=== PATIENT | female | born 1980 | race Caucasian/White ===

== ENCOUNTER 2021-09-03 01:19 | Day surgery (SDC) | payer OTHER, SELFPAY ==
[2021-09-03] VITALS (10 sets, daily range): BP systolic 144–182; BP diastolic 79–100; PULSE 69–93; RESP 13–18; TEMP 36.2–37.1; O2SAT 93–100
--- NOTE | 2021-09-03 09:23 | ECG_ITS ---
Measurements Intervals [place] Rate: 75 P: 41 HI: 135 QRS: -8 QRSD: 126 T: 44 QT: 392 QTc: 439 Interpretive Statements SINUS RHYTHM MINIMAL Q WAVES- HIGH LATERAL LEADS BASELINE ARTIFACT- AVL, V1 BORDERLINE ECG Electronically Signed On 09-03-2021 11:54:58 CDT by Randolph Yost D.O.
[2021-09-03 11:10] LABS: Add Urine Microscopic? NO; Appearance Urine Clear (Clear); Bilirubin Urine Negative (Negative); Blood Urine Negative (Negative); Color Urine Yellow (Yellow); Glucose Urine UA Negative (Negative); Ketones Urine Negative (Negative); Leukocyte Esterase Ur Negative LEU/UL (NEGATIVE); Nitrate Urine Negative (Negative); Protein Urine Negative (Negative); Specific Grav Ur 1.014 (1.001-1.035); Urobilinogen Urine Negative mg/dL (<2.0)
[2021-09-03] MEDS: LACTATED RINGERS 1,000 ML 30 ML IV CONT ×2 (11:15→15:10)
[2021-09-03] MEDS: KETOROLAC 15 MG/ML VIAL (*BKC) IV PUSH (11:19)
[2021-09-03] MEDS: ACETAMINOPHEN 500 MG TABLET 1000 MG PO (11:19)
[2021-09-03 11:34] LABS: Hematocrit 41.7 % (37.0-47.0); Hemoglobin 13.5 g/dL (12.0-15.0)
--- NOTE | 2021-09-03 12:30 | PM.HPGS ---
History of Present Illness History of Present Illness Consent: Risks, benefits, and alternatives have been discussed and questions answered. Patient agrees to proceed with procedure. Chief complaint: desired sterilization, abnormal uterine bleeding Narrative: Remedios Browning is a 41 year old female C discuss sterilization and bleeding HPI Here to discuss possible treatment for aub . Dsicussed benign EMB so plans all discussed and its decided for endometrial ablation as best course of action because she needs to return to activity as quickly as possible Discussed tubal sterilization also so no risk of . Risk/benefits/altenratives discussed. Had discussed VNOTES tubal with laparoscopy as is less painful and quicker return to activity ROS -HELM, -Vis changes, -F/s/c -CP, -palpitations, -irregular heart beats -SOB, -Cough/wheeze -Abdominal pain, -diarrhea/constipation -Vaginal discharge, -bleeding, -ulcerations or masses -New skin lesions, -dryness, -hairloss -trouble ambulation, -vertigo, -dizziness, -muscle weakeness, -joint pains -depression/anxiety, -suicidal/homicidal ideation, -hallucinations -hotflashes, -nightsweats, - mood swings, -vaginal dryness, -dyspareunia, - insomnia/poor sleep, -hair loss, -skin dryness, -brain fog, -decreased concentration, -intolerance to loud noises, -abnormal weight changes, -libido changes PMHx Thyroiditis Anemia PCOS Other skin condition(s) Hyperlipidemia Allergic Rhinitis Mole(s) Wears glasses/contacts Asthma Depression PSHx Colposcopy - 03/2021 Hysteroscopy - with D&C 03/2021 FHx father: , +Diabetes (Type II) , +Heart Disease, +Hyperlipidemia, +Hypertension, +T cell Lymphoma maternal aunt: Unknown, +Breast CA (x2) maternal grandmother: , +Parkinson's maternal grandfather: Alive, +Skin Cancer Soc Hx Tobacco: Current every day smoker Alcohol: Occasional drink Drug Abuse: No illicit drug use Cardiovascular: Eat healthy meals / Take daily aspirin Safety: Household Smoke detector / Wear seatbelts Sexual Activity: Safe sex practices Gender: Female Ob Preg Hx Ob History: Age of menses:15, +Hx of irregular menses, +Hx of abn PAP smear, +Hx of cervical Bx Medications Iron (ferrous sulfate) 325 mg (65 mg iron) tablet (Edited by Christel Nelson on Nov, at 12:15 PM ) rOPINIRole 0.5 mg tablet (Edited by Christel Nelson on Nov, at 12:15 PM ) fenofibrate 160 mg tablet (Edited by Christel Nelson on Nov, at 12:14 PM ) FLUoxetine 20 mg tablet, 1xday (Edited by Christel Nelson on Nov, at 12:14 PM ) Allergies No known medication allergies (Allergy reconciliation performed by ARMANDO MAGAÑA 11:15 AM 22 Jan 2021 Last updated) Vitals 26 Aug 2021 - 02:51 PM - recorded by Brandee Swenson BP: 157.0 / 82.0 HR: 84.0 bpm Temp: 98.1 ?F Ht/Lt: 5' 5 Wt: 371 lbs 0 oz BMI: 61.74 EXAM GEN: NAD, well groomed female RESP: nonlabored respirations, No audible wheezes CV: normal rate GI: +BS, nontender to palpation, no rebound or guarding EXT: no cyanosis/clubbing/edema NEURO: AO x 3 PSYCH: judgment/insight intact, NL mood/affect Assessment Sterilization requested (situation) (Z30.2/V25.2) Encounter for sterilization modified Aug, Abnormal uterine bleeding (disorder) (N93.9/626.9) Abnormal uterine and vaginal bleeding, unspecified modified Dec, Plan Plan is vnotes laparoscopic bilateral salpingectomy as is method preferred by the patient. Discussed also AUB and plan is hysteroscoipy with endometrial ablation. Plan is to proceed with scheduled surgery. All risks/benefits/alternatives were discussed in detail including: Injury to surrounding organs, infection, bleeding, blood transfusion, and repeat surgery. All post operative care instructions reviewed and were sent to her via the portal for review as well. She agrees to proceed. ARMANDO MAGAÑA M.D. 03 Sep 2021 12:30 PM See H&P update [facility] Social History Social History Smoking packs per day: 0.5 S
--- NOTE | 2021-09-03 12:31 | WPDHPUPDATE1 ---
History and Physical Update Update Date/Time: 09/03/21 12:31 History and Physical has been reviewed, including an updated exam of the patient. There are NO changes in the patient's condition. Risks, benefits, and alternatives have been discussed and questions answered. Patient agrees to proceed with procedure. Discussed mode of procedure: Plan is bilateral tubal fulguration with laparscopy If unable to compelte laparoscopic, this facility does not allow VNOTES due to cost of purchase of device so will need to reschedule tubal portion at another facility if it seems laparoscopy cannot safely be completed. However, plan is to move forward with possibly laparoscopic bilatarl tubal fulguration and hysteroscopy with endometrial ablation.
--- NOTE | 2021-09-03 13:08 | WPDANESEPPF ---
Anes - Initial Pre Proc Eval Procedure: Operation Date: 09/03/21 12:45 Proposed Procedures p Laparoscopic Bilateral Tubal Sterilization with Fulgeration - Birdie Jean-Baptiste MD s Hysteroscopy with Susan Endometrial Ablation - Birdie Jean-Baptiste MD Date/Time: 09/03/21 13:08 Surgeon: Birdie Jean-Baptiste MD Pre Op Diagnosis: desired sterilization, abnormal uterine bleeding Patient Data Age: 41 Gender: F Height: 1.65 m Weight: 166.8 kg Last Vital Signs Temp 37.1 C 09/03/21 11:00 Pulse 77 09/03/21 11:00 Resp 18 09/03/21 11:00 BP 149/79 H 09/03/21 12:29 Pulse Ox 100 09/03/21 11:00 Allergies Allergy/AdvReac Type Severity Reaction Status Date / Time No Known Allergies Allergy Verified 09/03/21 11:26 Home Medications Medication Instructions Recorded Confirmed Type fenofibrate 160 mg PO DAILY 08/30/21 09/03/21 History ferrous sulfate, dried 160 mg PO DAILY 08/30/21 09/03/21 History fluoxetine 20 mg PO DAILY 08/30/21 09/03/21 History Laboratory Tests 09/03/21 09/03/21 10:51 11:21 Hgb 13.5 g/dL g/dL (12.0-15.0) Hct 41.7 % % (37.0-47.0) Urine Color Yellow (Yellow) Urine Appearance Clear (Clear) Urine pH 6.0 (5.0-9.0) Ur Specific [place] 1.014 (1.001-1.035) Urine Protein Negative mg/dL mg/dL (Negative) Urine Glucose (UA) Negative mg/dL mg/dL (Negative) Urine Ketones Negative mg/dL mg/dL (Negative) Ur Blood (Man) Negative (Negative) Urine Nitrate Negative (Negative) Urine Bilirubin Negative (Negative) Urine Urobilinogen Negative mg/dL mg/dL (<2.0) Ur Leukocyte Esterase Negative FLORINA/UL FLORINA/UL (NEGATIVE) Patient hx anesthesia problems: none Family hx anesthesia problems: none Results Review: All pre-operative results and documents have been reviewed as part of the pre-operative evaluation. [facility] Past Medical History Medical History Asthma Depression Hyperlipidemia NASREEN (obstructive sleep apnea) Social History Social History Smoking packs per day: 0.5 Smoking cigarettes per day: 10.0 Years smoked: 20 Smoking pack-years: 10.00 Smoking status: Current every day smoker Tobacco type: cigarettes Alcohol intake: current Alcohol use details: RARE Substance use: never Substance use type: does not use Living arrangements: with family Additional living arrangements comments: CHILDREN Spiritual care concerns: No Anes - Eval Final PreProcedure Day of Procedure 09/03/21 13:08 Patient weight: super morbidly obese Heart: regular rate and rhythm Lungs: decreased breath sounds Airway: Mallampati scale class III Neurological: alert and oriented Last oral intake: >/= 8 hours ASA classification: III Emergent: no Anesthetic plan: proceed Anesthesia type and monitoring: general ETT and standard monitoring Results Review: All pre-operative results and documents have been reviewed as part of the pre-operative evaluation. Informed Consent: The patient's anesthetic plan and its attendant risks and benefits were discussed with the patient/family/POA. Questions were solicited and answers provided to the satisfaction of the patient/family/POA.
[2021-09-03] MEDS: BUPIVACAINE HCL 0.5% PF 30 ML VIAL INFILTRATE (13:39)
--- NOTE | 2021-09-03 14:54 | SUR.OPER ---
EBL: 5cc
--- NOTE | 2021-09-03 14:59 | W.PM.PROC2 ---
Procedure Note - Detailed Date of Procedure 09/03/21 Pre-op Diagnosis desired sterilization, abnormal uterine bleeding Post-op Diagnosis same Procedure Performed laparoscopic bilateral tubal fulguration, hysteroscopy with endometrial ablation with SUSAN Surgeon Birdie Jean-Baptiste MD Anesthesia general Indications Patient with heavy menstrual bleeding and desired sterilization. EMB was benign. Risk/benefits/alternatives discussed. Desired minimally invasive approach to treatment with least down time. Laparoscopic tubal and endometrial ablation discussed in detail and the patient desired to proceed. Findings Normal uterus and fallopian tubes bilaterally. Normal right ovary and a follicular type left ovarian cyst noted during the procedure. No pelvic adhesions or suspicious masses noted. One small omental adhesion to anterior abdominal wall just mid abdomen of no consequence to our procedure today so left in place. Description of Procedure The patient was taken to the operating room were general anesthesia was found to be adequate. She was then prepped and draped in sterile fashion in the dorsal lithotomy position. A galvin catheter was placed. A speculum was used to visualize the cervix and a single toothed tenaculum placed on the anterior lip. The cervix was serially dilated with hegar dialators and sound noted uterine length to be 12cm, the cervix 6cm, so cavity length was 2cm. The acorn uterine manipulator placed within the cervix and affixed to the tenaculum. Attention was then turned to the umbilicus which was injected with 0.5% marcaine in the infraumbilical fold, incised with a scalpel, the subcutaneous tissue with a hemostat and the long veres needle used to enter into the peritoneum cavity with saline drop test positive for entry. Intraabdominal pressure was 7mmHg and then CO2 insufflation used to insufflate to 14mmHg. A long 5mm port was placed within the incision and optical entry used to enter into the peritoneum with the trocar. The patient was then placed in as much Trendelenberg necessary to view the pelvic organs adequately to reach the fallopian tubes. A suprapubic port was then placed by injecting the skin with 0.5% marcaine, incision with scalpel and 5mm port placed without complication. A third port was placed in LLQ medial to a mid abdominal omental adhesion so as to avoid it obscuring our view. This was done in a similar fashion of the suprapubic port, both with direct visualization. The uterus was elevated and a grasper used to sweep the bowel out of the view. The right fallopian tube and fimbriae identified and the tube in its mid portion was cauterized with Kleppenger bipolar cautery along the tube and the paratubal tissue. Images taken before and after. Similarly the left fallopian tube was identified and fimbria noted. The kleppenger used to cauterize the mid portion of the fallopian tube and the paratubal tissue as well. Images taken before and after. A left ovarian cyst was noted but appeared to be ovulatory/simple in nature and was left in place. The right ovary was normal. The uterus was normal as well without significant lesions. So the tubal was complete and the pneumopertineum was released and the ports removed. Skin was closed with 4-0 monocryl in an interrupted fashion. Steristrips and mastasalt was used over the laparoscopy incisions and covered with tegaderm. The attention was then turned to the vagina where a speculum was reinserted and the [place] uterine manipulator was removed. A 5mm hysteroscope was then inserted into the cervix and the uterine cavity was visualized. No significant uterine masses or lesions noted. Slight fluffy texture to the left uterine wall. Otherwise normal endometrial cavity and bilateral tubal ostia were viewed. The susan device was then prepared and a second tenaculum placed on the posterior lip of the cervix. The Susan was set to 6cm and inserted in the uterine cavi
--- NOTE | 2021-09-03 15:39 | SUR.PHASEI ---
PT HAS AUDIBLE EXPIRATORY WHEEZES. BREATH SOUNDS WITH GOOD AIR MOVEMENT. DR. SNYDER NOTIFIED; RT CALLDE TO GIVE ALBUTEROL NEB.
[2021-09-03] MEDS: ALBUTEROL SULFATE NEB 2.5 MG/3 ML INH INHALATION (15:49)
== END 2021-09-03 16:38 | disposition home or self-care (01) ==
PROVIDERS: Anesthesiology; PCP Internal Medicine; Visit Provider Obstetrics & Gynecology
PROC: (CPT 58671; principal; 2021-09-03 12:45)
PROC: 0U5B8ZZ Destruction of Endometrium, Via Natural or Artificial Opening Endoscopic (ICD-10-PCS; CPT 58563; 2021-09-03 12:45)
DX: Z30.2 Encounter for sterilization (principal); N93.9 Abnormal uterine and vaginal bleeding, unspecified; F32.9 Major depressive disorder, single episode, unspecified; J45.909 Unspecified asthma, uncomplicated; E78.5 Hyperlipidemia, unspecified; G47.33 Obstructive sleep apnea (adult) (pediatric); F17.290 Nicotine dependence, other tobacco product, uncomplicated; E66.01 Morbid (severe) obesity due to excess calories; Z68.44 Body mass index [BMI] 60.0-69.9, adult; D64.9 Anemia, unspecified; E28.2 Polycystic ovarian syndrome; F17.210 Nicotine dependence, cigarettes, uncomplicated
CPT/HCPCS: 58563; 58670; 36415; 81003; 85014; 85018; 93005; 94640; A9270; J0330; J1100; J1170; J1885; J2250; J2405; J2704; J2710; J3010; J7030; J7120